=== PATIENT | female | born 1965 | race Caucasian/White ===

== ENCOUNTER 2016-09-09 20:03 | Emergency (ER) | payer MEDICARE ==
[2016-09-09] MEDS ORDERED: HYDROCODONE/APAP 5/325MG TABLET PO ONE (21:52)
--- NOTE | 2016-09-09 21:59 | Emergency Department Record ---
History of Present Illness - General Chief Complaint: Fall Injury Stated Complaint: FALL Time Seen by Provider: 09/09/16 20:23 Source: Patient Mode of Arrival: Ambulatory Limitations: No limitations - History of Present Illness Initial Comments: pt stepped in a hole injuring her l ankle and foot and hip and r hand. pt sat and rested and when she tried to get up it was much worse. pt called her dr and her dr said to come get xrays of these areas. MD Complaint: Fall Onset/Timin -: Hour(s) Fall From: Standing When Fall Occurred: 4-6 hours MAP MOUNTER Fall Witnessed: No Place Fall Occurred: Home Loss of Consciousness: None Prolonged Down Time?: No Symptoms Prior to Fall: None Location - Extremities: Left: Thigh, Ankle, Foot, Right: Hand Severity: Moderate Severity scale (1-10): 6 Quality: Aching Context: Tripped/slipped Associated Symptoms: Denies - [place] Coma Scale Eye Response: (4) Open spontaneously Motor Response: (6) Obeys commands Verbal Response: (5) Oriented [place] Total: 15 - Related Data Home Medications Medication Instructions Recorded Confirmed Last Taken Buspirone HCl [Buspar] 30 mg PO DAILY 06/22/15 09/09/16 09/08/16 Cyclobenzaprine HCl [Flexeril] 10 mg PO TID 06/22/15 09/09/16 09/09/16 Duloxetine HCl [Cymbalta] 120 mg PO DAILY 06/22/15 09/09/16 09/08/16 Guaifenesin 400 mg PO BID 06/22/15 09/09/16 Unknown Lamotrigine [Lamictal] 75 mg PO DAILY 06/22/15 09/09/16 09/09/16 Levothyroxine Sodium [Synthroid] 100 mcg PO DAILY 06/22/15 09/09/16 09/09/16 Lidocaine Patch [Lidoderm] 1 ea TOP DAILY PRN 06/22/15 09/09/16 09/09/16 Magnesium 400 mg PO DAILY 06/22/15 09/09/16 09/09/16 Montelukast Sodium [Singulair] 10 mg PO QHS 06/22/15 09/09/16 09/08/16 Multivitamin [Multi-Vitamin Daily] 1 each PO DAILY 06/22/15 10/20/15 09/09/16 Nystatin 500,000 unit TOP BID 06/22/15 09/09/16 09/09/16 Omeprazole 20 mg PO BID 06/22/15 09/09/16 09/09/16 Tramadol HCl 50 mg PO Q8H 06/22/15 09/09/16 09/09/16 Valacyclovir HCl [Valtrex] 500 mg PO Q12H 06/22/15 09/09/16 Unknown Vitamin B Complex [B-50 Complex] 1 each PO DAILY 06/22/15 09/09/16 09/08/16 Zolpidem Tartrate [Ambien] 10 mg PO QHS 06/22/15 09/09/16 09/08/16 Bupropion HCl [Wellbutrin Sr] 200 mg PO 1-2XD tab 06/10/16 09/09/16 09/09/16 Mometasone/Formoterol [Dulera 200 2 puff IH Q12H puff 06/10/16 09/09/16 Unknown Mcg/5 Mcg Inhaler] Meloxicam [Mobic] 15 mg PO DAILY 09/09/16 09/09/16 09/08/16 Allergies Allergy/AdvReac Type Severity Reaction Status Date / Time itraconazole [From Sporanox] Allergy RASH Verified 10/19/15 00:47 Sulfa (Sulfonamide Allergy HIVES Verified 06/22/15 14:42 Antibiotics) Travel Screening - Travel/Exposure Within Last 30 Days Have you traveled within the last 30 days?: No Review of Systems Reviewed: No additional complaints except as noted below Constitutional: Reports: As per HPI. Denies: Chills, Fever, Malaise, Night sweats, Weakness, Weight change Eyes: Reports: As per HPI. Denies: Eye discharge, Eye pain, Photophobia, Vision change ENT: Reports: As per HPI. Denies: Congestion, Dental pain, Ear pain, Epistaxis , Hearing loss, Throat pain Respiratory: Reports: As per HPI. Denies: Cough, Dyspnea, Hemoptysis, Stridor, Wheezes Cardiovascular: Reports: As per HPI. Denies: Arrhythmia, Chest pain, Dyspnea on exertion, Edema, Murmurs, Orthopnea, Palpitations, Paroxysmal nocturnal dyspnea, Rheumatic Fever, Syncope Endocrine: Reports: As per HPI. Denies: Fatigue, Heat or cold intolerance, Polydipsia, Polyuria Gastrointestinal: Reports: As per HPI. Denies: Abdominal pain, Constipation, Diarrhea, Hematemesis, Hematochezia, Melena, Nausea, Vomiting Genitourinary: Reports: As per HPI. Denies: Abnormal menses, Discharge, Dyspareunia, Dysuria, Frequency, Hematuria, Incontinence, Retention, Urgency Musculoskeletal: Reports: As per HPI. Denies: Arthralgia, Back pain, Gout, Joint swelling, Myalgia, Neck pain Skin: Reports: As per HPI. Denies: Bruising, Change in color, Change in hair/ nails, Lesions, Pruritus, Rash Neurological: Reports: As per HPI. Denies: Abnormal gait, Confusion, Headache, Numbness, Paresthesias, Seizure, Tingling, Tremors, Vertigo, Weakness Psychiatric: Reports: As per HPI. Denies: Anxiety, Auditory hallucinations, Depression, Homicidal thoughts, Suicidal thoughts, Visual hallucinations Hematological/Lymphatic: Reports: As per HPI. Denies: Anemia, Blood Clots, Easy bleeding, Easy bruising, Swollen glands Past Medical History - SOCIAL HISTORY Smoking Status: Former smoker Alcohol Use: Occassional Drug Use: Heavy Drug Use Detail:: Marijuana - RESPIRATORY Hx Respiratory Disorders: Yes Hx Asthma: Yes Hx Pneumonia: Yes (06/2015) - CARDIOVASCULAR Hx Cardio Disorders: No - NEURO Hx Neuro Disorders: Yes Hx Headaches: Yes (constant migraine) Comment:: Shingles x2 - GI Hx GI Disorders: Yes Hx Reflux: Yes Hx Hiatal Hernia: Yes - Hx Genitourinary Disorders: Yes Comment:: having post menopausal vaginal bleeding - ENDOCRINE Hx Endocrine Disorders: Yes Hx Thyroid Disease: Yes (hypo) - MUSCULOSKELETAL Hx Musculoskeletal Disorders: Yes Hx Fibromyalgia: Yes - PSYCH Hx Psych Problems: Yes Hx Depression: Yes - HEMATOLOGY/ONCOLOGY Hx Hematology/Oncology Disorders: Yes Hx Anemia: Yes Family Medical History Any Significant Family History?: Yes Family Hx Comment (NOT TO BE USED IN PLACE OF ITEMS BELOW): Sister w/MS Hx Cancer: Father Hx Diabetes: Father, Brother/Sister Hx Heart Disease: Grandparents Hx HTN: Father, Mother Physical Exam - General General Appearance: Alert, Oriented x3, Cooperative, Mild distress - Head Head exam: Normal inspection - Eye Eye exam: Normal appearance, PERRL, EOMI Pupils: Normal accommodation - ENT ENT exam: Normal exam, Mucous membranes moist, Normal external ear exam, Normal orophraynx Ear exam: Normal external inspection. negative: External canal tenderness Nasal Exam: Normal inspection. negative: Discharge, Sinus tenderness Mouth exam: Normal external inspection, Tongue normal Teeth exam: Normal inspection. negative: Dental caries Throat exam: Normal inspection. negative: Tonsillar erythema, Tonsillar exudate - Neck Neck exam: Normal inspection, Full ROM. negative: Tenderness - Respiratory Respiratory exam: Normal lung sounds bilaterally. negative: Respiratory distress - Cardiovascular Cardiovascular Exam: Regular rate, Normal rhythm, Normal heart sounds - GI/Abdominal GI/Abdominal exam: Soft, Normal bowel sounds. negative: Tenderness - Rectal Rectal exam: Deferred - exam: Deferred - Extremities Extremities exam: Full ROM, Normal capillary refill, Tenderness Image of Full Body: 1 - tender ,contusion 2 - tender 3 - tender - Back Back exam: Reports: Normal inspection, Full ROM. Denies: Muscle spasm, Rash noted, Tenderness - Neurological Neurological exam: Alert, CN II-XII intact, Normal gait, Oriented X3 - Psychiatric Psychiatric exam: Normal affect, Normal mood - Skin Skin exam: Dry, Intact, Normal color, Warm Course Vital Signs 09/09/16 20:11 Temperature 98.5 F Pulse Rate [ 100 H Pulse Ox Probe] Respiratory 16 Rate Blood Pressure 144/88 [Left Arm] Pulse Ox 97 Disposition Disposition: Discharge Clinical Impression: Multiple contusions Ankle sprain Qualifiers: Encounter type: initial encounter Involved ligament of ankle: unspecified ligament Laterality: left Qualified Code(s): S93.402A - Sprain of unspecified ligament of left ankle, initial encounter Disposition: Home, Self-Care Condition: (1) Good Instructions: Hip Contusion (ED), Foot Contusion (ED), Ankle Sprain (ED) Additional Instructions: follow up with family doctor. return sooner if worse. Forms: Patient Portal Access
--- NOTE | 2016-09-13 09:01 | RADIOLOGY REPORT ---
EXAM: RIGHT HAND, THREE VIEWS HISTORY: FALL, RIGHT FIRST METACARPAL INJURY AND PAIN. TECHNIQUE: Three views of the right hand were obtained. Comparison: None. FINDINGS: No bone or joint abnormality. IMPRESSION: NEGATIVE RIGHT HAND EXAMINATION. JOB NUMBER: [id number] MTDD
--- NOTE | 2016-09-13 09:02 | RADIOLOGY REPORT ---
EXAM: LEFT HIP, THREE VIEWS HISTORY: FALL, LEFT HIP INJURY AND PAIN. TECHNIQUE: Three views of the left hip were obtained. Comparison: None. FINDINGS: No bone or joint abnormality. IMPRESSION: NEGATIVE LEFT HIP EXAMINATION. JOB NUMBER: [id number] MTDD
--- NOTE | 2016-09-13 09:05 | RADIOLOGY REPORT ---
EXAM: LEFT ANKLE, THREE VIEWS HISTORY: FALL, LATERAL LEFT ANKLE PAIN. TECHNIQUE: Three views of the left ankle were obtained. Comparison: None. Encounter: Initial. FINDINGS: The left ankle mortise is intact with no acute fracture. Mild enthesophyte formation at the plantar fascial insertion. IMPRESSION: 1. NO ACUTE PROCESS OF THE LEFT ANKLE. 2. MILD LEFT CALCANEAL ENTHESOPATHY. JOB NUMBER: [id number] MTDD
--- NOTE | 2016-09-13 09:07 | RADIOLOGY REPORT ---
EXAM: LEFT FOOT, THREE VIEWS HISTORY: FALL, LATERAL LEFT FOOT INJURY AND PAIN. TECHNIQUE: Three views of the left foot were obtained. Comparison: None. Encounter: Initial. FINDINGS: No acute fracture or dislocation. Mild enthesophyte formation at the plantar fascial insertion. IMPRESSION: NO ACUTE OSSEOUS ABNORMALITY OF THE LEFT FOOT. JOB NUMBER: [id number] MTDD
== END 2016-09-09 22:11 | disposition home or self-care (01) ==
LOC: ER 20:03
DX: S93.402A Sprain of unspecified ligament of left ankle, initial encounter (principal); S60.221A Contusion of right hand, initial encounter; S70.12XA Contusion of left thigh, initial encounter; M25.552 Pain in left hip; W01.0XXA Fall on same level from slipping, tripping and stumbling without subsequent striking against object, initial encounter; Y92.007 Garden or yard of unspecified non-institutional (private) residence as the place of occurrence of the external cause
CPT/HCPCS: 99283; 99284

== ENCOUNTER 2017-05-29 17:00 | Emergency (ER) | payer MEDICARE ==
[2017-05-29] MEDS ORDERED: SODIUM CHLORIDE 0.9% 500 ML IV ONE (17:28)
[2017-05-29] MEDS ORDERED: LORAZEPAM 2 MG/ML VIAL IV ONE ×3 (17:29→21:41)
--- NOTE | 2017-05-29 17:35 | Emergency Department Record ---
History of Present Illness - General Chief Complaint: Crisis Evaluation Stated Complaint: NEEDS CONSULTAION Time Seen by Provider: 05/29/17 17:22 Source: Patient Mode of Arrival: Ambulatory Limitations: No limitations Travel/Exposure to [place] Within 21 Days of Symptoms: No - History of Present Illness Initial Comments: The patient is here due to anxiety. She states she has been having issues with her PCP and had an argument on the phone with the office. They have been cancelling her appointments due to scheduling difficulties and have been very difficult to deal with. Today she asked the office for an acyclovir script due to a chronic problem with genital herpes and the office refused to fill it. Because of that she has become very anxious and angry. She denies any suicidal or homicidal ideation but is just very upset with the office. The patient has a long hx of chronic pain and anxiety and depression and is on multiple medicines for it. MD Complaint: Other -: Unknown Associated Psychiatric Symptoms: None History of same: Yes Quality: Intermittent Improves With: None Worsens With: None Associated Symptoms: Other Treatments Prior to Arrival: None - [place] Coma Scale Eye Response: (4) Open spontaneously Motor Response: (6) Obeys commands Verbal Response: (5) Oriented [place] Total: 15 - Related Data Home Medications Medication Instructions Recorded Confirmed Last Taken Amitriptyline HCl [Amitriptyline 05/29/17 05/29/17 HCl] Cetirizine HCl [Zyrtec] 10 mg PO DAILY 05/29/17 05/29/17 05/29/17 Promethazine HCl [Phenergan] 25 mg PO 05/29/17 05/29/17 Allergies Allergy/AdvReac Type Severity Reaction Status Date / Time gabapentin [From Neurontin] Allergy PT UNSURE Verified 05/29/17 17:30 OF REACTION itraconazole [From Sporanox] Allergy RASH Verified 10/19/15 00:47 Sulfa (Sulfonamide Allergy HIVES Verified 06/22/15 14:42 Antibiotics) Past Medical History - SOCIAL HISTORY Smoking Status: Former smoker Alcohol Use: None Drug Use: None - RESPIRATORY Hx Respiratory Disorders: Yes Hx Asthma: Yes Hx Pneumonia: Yes (06/2015) - CARDIOVASCULAR Hx Cardio Disorders: No - NEURO Hx Neuro Disorders: Yes Hx Headaches: Yes (constant migraine) Comment:: Shingles x2 - GI Hx GI Disorders: Yes Hx Reflux: Yes Hx Hiatal Hernia: Yes - Hx Genitourinary Disorders: Yes Comment:: having post menopausal vaginal bleeding - ENDOCRINE Hx Endocrine Disorders: Yes Hx Thyroid Disease: Yes (hypo) - MUSCULOSKELETAL Hx Musculoskeletal Disorders: Yes Hx Fibromyalgia: Yes - PSYCH Hx Psych Problems: Yes Hx Depression: Yes - HEMATOLOGY/ONCOLOGY Hx Hematology/Oncology Disorders: Yes Hx Anemia: Yes Family Medical History Any Significant Family History?: Yes Family Hx Comment (NOT TO BE USED IN PLACE OF ITEMS BELOW): Sister w/MS Hx Cancer: Father Hx Diabetes: Father, Brother/Sister Hx Heart Disease: Grandparents Hx HTN: Father, Mother Physical Exam - General General Appearance: Alert, Oriented x3, Cooperative, Mild distress (due to anxiety.) - Head Head exam: Atraumatic, Normocephalic - Eye Eye exam: Normal appearance, PERRL, EOMI - ENT Throat exam: Normal inspection. negative: Tonsillar erythema, Tonsillar exudate - Neck Neck exam: Normal inspection, Full ROM. negative: Tenderness - Respiratory Respiratory exam: Normal lung sounds bilaterally. negative: Respiratory distress - Cardiovascular Cardiovascular Exam: Regular rate, Normal rhythm, Normal heart sounds - GI/Abdominal GI/Abdominal exam: Soft, Normal bowel sounds. negative: Tenderness - Extremities Extremities exam: Normal inspection, Full ROM, Normal capillary refill. negative: Tenderness - Neurological Neurological exam: Alert, Normal gait, Oriented X3. negative: Abnormal gait, Motor sensory deficit - Psychiatric Psychiatric exam: Anxious Course Vital Signs 05/29/17 17:08 Temperature 99.3 F Pulse Rate 111 H Respiratory 20 Rate Blood Pressure 191/84 Pulse Ox 97 - Reevaluation(s) Reevaluation #1: The patient is doing better at this time. She feels less anxious and is more calm and comfortable. 05/29/17 17:55 Reevaluation #2: The patient is now more calm but now is stating she DOES feel suicidal. She feels that the events of tonight have tipped her over the edge and she is feeling if she leaves she may slit her wrists trying to kill herself. I explained to her that due to her feeling that way we will be obligated to Francisca and Cert her. The patient understands and is still stating she is suicidal. 05/29/17 18:26 05/29/17 18:38 Reevaluation #3: The patient's care will be turned over to Dr. Wang at 19:00 due to shift change. 05/29/17 18:46 Medical Decision Making - Data Complexity MDM Data: Labs Ordered and/or Reviewed, EKG Ordered and/or Reviewed - Lab Data Result diagrams: 05/29/17 17:41 05/29/17 17:41 - EKG Data -: EKG Interpreted by Me EKG: No Acute Changes, Normal EKG Disposition Forms: Patient Portal Access Quality - Quality Measures Quality Measures: N/A - Blood Pressure Screening View Details: Yes Does Patient Have Any of the Following: No Blood Pressure Classification: Pre-Hypertensive BP Reading Systolic Measurement: 191 Diastolic Measurement: 84 Screening for High Blood Pressure: < Pre-Hypertensive BP, F/U Documented > [ G8950] Pre-Hypertensive Follow-up Interventions: Referral to alternative/primary care provider.
[2017-05-29 17:53] LABS: HEMATOCRIT 47.7 % (35.0-47.0); HEMOGLOBIN 15.9 gm/dl (11.6-16.0); MEAN CELL VOLUME 91.4 fl (81-97); MEAN CORPUSCULAR HEMOGLOBIN 30.5 pg (27-33); MEAN CORPUSCULAR HGB CONC 33.3 g/dl (32-36); MEAN PLATELET VOLUME 9.6 fl (7.4-10.4); PLATELET COUNT 400 K/uL (130-400); RED BLOOD COUNT 5.22 M/uL (3.80-5.40); RED CELL DISTRIBUTION WIDTH 13.5 % (11.5-14.5); WHITE BLOOD COUNT W/O DIFF 12.1 K/uL (4.2-12.2)
[2017-05-29 18:08] LABS: ACETAMINOPHEN < 5.0 ug/mL (10.0-30.0); PLATELET ESTIMATE NORMAL (NORMAL); SALICYLATE < 0.3 mg/dL (2.8-20)
[2017-05-29 18:17] LABS: BLOOD UREA NITROGEN 16 mg/dL (6-20); GLUCOSE,RANDOM 93 mg/dL (74-109)
[2017-05-29 18:18] LABS: ALB/GLOB RATIO 1.8 (1.1-1.8); ALBUMIN 4.6 g/dL (4.0-5.0); AST/SGOT 19 U/L (10.0-35.0); CREATININE 0.8 mg/dL (0.5-0.9); EST GLOMERULAR FILTRATION RATE > 60 mL/min; TOTAL PROTEIN 7.2 g/dL (6.6-8.7)
[2017-05-29 18:19] LABS: ALKALINE PHOSPHATASE 96 U/L (35-104); ALT/SGPT 33 U/L (<33)
[2017-05-29 19:36] LABS: URINE APPEARANCE CLEAR; URINE BILIRUBIN NEGATIVE (NEGATIVE); URINE BLOOD NEGATIVE (NEGATIVE); URINE COLOR YELLOW; URINE GLUCOSE (UA) NEGATIVE (NEGATIVE); URINE KETONE NEGATIVE (NEGATIVE); URINE LEUKOCYTE ESTERASE NEGATIVE (NEGATIVE); URINE NITRITE NEGATIVE (NEGATIVE); URINE PROTEIN NEGATIVE (NEGATIVE); URINE UROBILINOGEN 0.2 E.U./dL (0.20 - 1.00)
[2017-05-29 19:40] LABS: AMPHETAMINE SCREEN URINE NOT DETECTED; BARBITURATE SCREEN URINE NOT DETECTED; BENZODIAZEPINE SCREEN URINE NOT DETECTED; COCAINE SCREEN URINE NOT DETECTED; METHADONE SCREEN URINE NOT DETECTED; METHAMPHETAMINE SCREEN NOT DETECTED; OPIATE SCREEN URINE NOT DETECTED; OXYCODONE SCREEN URINE NOT DETECTED; PHENCYCLIDINE SCREEN URINE NOT DETECTED; PROPOXYPHENE SCREEN URINE NOT DETECTED; THC SCREEN URINE NOT DETECTED; TRICYCLIC ANTIDEPRESSANT SCRN NOT DETECTED
[2017-05-30] MEDS ORDERED: ACYCLOVIR 200 MG CAPSULE PO ONE ×2 (00:36→00:37)
--- NOTE | 2017-05-30 00:43 | Emergency Department Record ---
History of Present Illness - General Chief Complaint: Crisis Evaluation Stated Complaint: NEEDS CONSULTAION Time Seen by Provider: 05/29/17 17:22 Source: Patient Mode of Arrival: Ambulatory Travel/Exposure to [facility] Within 21 Days of Symptoms: No - History of Present Illness -: Unknown Associated Psychiatric Symptoms: None History of same: Yes Quality: Intermittent Improves With: None Worsens With: None Associated Symptoms: Other Treatments Prior to Arrival: None - [place] Coma Scale Eye Response: (4) Open spontaneously Motor Response: (6) Obeys commands Verbal Response: (5) Oriented [place] Total: 15 - Related Data Home Medications Medication Instructions Recorded Confirmed Last Taken Amitriptyline HCl [Amitriptyline 05/29/17 05/29/17 HCl] Cetirizine HCl [Zyrtec] 10 mg PO DAILY 05/29/17 05/29/17 05/29/17 Promethazine HCl [Phenergan] 25 mg PO 05/29/17 05/29/17 Allergies Allergy/AdvReac Type Severity Reaction Status Date / Time gabapentin [From Neurontin] Allergy PT UNSURE Verified 05/29/17 17:30 OF REACTION itraconazole [From Sporanox] Allergy RASH Verified 10/19/15 00:47 Sulfa (Sulfonamide Allergy HIVES Verified 06/22/15 14:42 Antibiotics) Past Medical History - SOCIAL HISTORY Smoking Status: Former smoker Alcohol Use: None Drug Use: None - RESPIRATORY Hx Respiratory Disorders: Yes Hx Asthma: Yes Hx Pneumonia: Yes (06/2015) - CARDIOVASCULAR Hx Cardio Disorders: No - NEURO Hx Neuro Disorders: Yes Hx Headaches: Yes (constant migraine) Comment:: Shingles x2 - GI Hx GI Disorders: Yes Hx Reflux: Yes Hx Hiatal Hernia: Yes - Hx Genitourinary Disorders: Yes Comment:: having post menopausal vaginal bleeding - ENDOCRINE Hx Endocrine Disorders: Yes Hx Thyroid Disease: Yes (hypo) - MUSCULOSKELETAL Hx Musculoskeletal Disorders: Yes Hx Fibromyalgia: Yes - PSYCH Hx Psych Problems: Yes Hx Depression: Yes - HEMATOLOGY/ONCOLOGY Hx Hematology/Oncology Disorders: Yes Hx Anemia: Yes Family Medical History Any Significant Family History?: Yes Family Hx Comment (NOT TO BE USED IN PLACE OF ITEMS BELOW): Sister w/MS Hx Cancer: Father Hx Diabetes: Father, Brother/Sister Hx Heart Disease: Grandparents Hx HTN: Father, Mother Physical Exam - General Limitations: No limitations Course Vital Signs 05/29/17 05/29/17 05/29/17 17:08 18:57 21:30 Temperature 99.3 F 98.3 F Pulse Rate 111 H Pulse Rate [ 93 H 91 H Pulse Ox Probe] Respiratory 20 18 24 Rate Blood Pressure 191/84 Blood Pressure 125/91 124/80 [Right Arm] Pulse Ox 97 99 95 Medical Decision Making - Lab Data Result diagrams: 05/29/17 17:41 05/29/17 17:41 Lab Results 05/29/17 05/29/17 05/29/17 Range/Units 17:41 17:41 17:41 WBC 12.1 (4.2-12.2) K/uL RBC 5.22 (3.80-5.40) M/uL Hgb 15.9 (11.6-16.0) gm/dl Hct 47.7 H (35.0-47.0) % MCV 91.4 (81-97) fl MCH 30.5 (27-33) pg MCHC 33.3 (32-36) g/dl RDW 13.5 (11.5-14.5) % Plt Count 400 (130-400) K/uL MPV 9.6 (7.4-10.4) fl Neutrophils % 71.0 (47-80) % Band Neutrophils % 1.0 (0-5) % Eosinophils % Not Reportable Basophils % Not Reportable Lymphocytes 20.0 (16-45) % Monocytes 8.0 (0-9) % Platelet Estimate Normal (NORMAL) RBC Morphology Normal Sodium 137 (136-145) mmol/L Potassium 4.1 (3.4-4.5) mmol/L Chloride 98 (98-107) mmol/L Carbon Dioxide 26.0 (22-29) mmol/L Anion Gap 13.0 (7-16) BUN 16 (6-20) mg/dL Creatinine 0.8 (0.5-0.9) mg/dL Estimated GFR > 60 mL/min Random Glucose 93 (74-109) mg/dL Calcium 9.3 (8.6-10.0) mg/dL Total Bilirubin 0.40 (0.2-1.0) mg/dL AST 19 (10.0-35.0) U/L ALT 33 (<33) U/L Alkaline Phosphatase 96 (35-104) U/L Total Protein 7.2 (6.6-8.7) g/dL Albumin 4.6 (4.0-5.0) g/dL Globulin 2.6 (1.4-4.8) gm/dL Albumin/Globulin Ratio 1.8 (1.1-1.8) TSH (0.270-4.20) uIU/mL Urine Color Urine Appearance Urine pH (5.0-8.0) Ur Specific [place] (1.002-1.030) Urine Protein (NEGATIVE) Urine Glucose (UA) (NEGATIVE) Urine Ketones (NEGATIVE) Urine Blood (NEGATIVE) Urine Nitrite (NEGATIVE) Urine Bilirubin (NEGATIVE) Urine Urobilinogen (0.20 - 1.00) E.U./dL Ur Leukocyte Esterase (NEGATIVE) Salicylates < 0.3 L (2.8-20) mg/dL Urine Opiates Screen Ur Oxycodone Screen Urine Methadone Screen Ur Propoxyphene Screen Acetaminophen < 5.0 L (10.0-30.0) ug/mL Ur Barbituates Screen Ur Tricyclics Screen Ur Phencyclidine Scrn Ur Amphetamine Screen U Methamphetamines Scrn U Benzodiazepines Scrn Urine Cocaine Screen Urine Cannabis Screen Ethyl Alcohol (0-0.010) g/dL 05/29/17 05/29/17 05/29/17 Range/Units 17:45 17:45 19:25 WBC (4.2-12.2) K/uL RBC (3.80-5.40) M/uL Hgb (11.6-16.0) gm/dl Hct (35.0-47.0) % MCV (81-97) fl MCH (27-33) pg MCHC (32-36) g/dl RDW (11.5-14.5) % Plt Count (130-400) K/uL MPV (7.4-10.4) fl Neutrophils % (47-80) % Band Neutrophils % (0-5) % Eosinophils % Basophils % Lymphocytes (16-45) % Monocytes (0-9) % Platelet Estimate (NORMAL) RBC Morphology Sodium (136-145) mmol/L Potassium (3.4-4.5) mmol/L Chloride (98-107) mmol/L Carbon Dioxide (22-29) mmol/L Anion Gap (7-16) BUN (6-20) mg/dL Creatinine (0.5-0.9) mg/dL Estimated GFR mL/min Random Glucose (74-109) mg/dL Calcium (8.6-10.0) mg/dL Total Bilirubin (0.2-1.0) mg/dL AST (10.0-35.0) U/L ALT (<33) U/L Alkaline Phosphatase (35-104) U/L Total Protein (6.6-8.7) g/dL Albumin (4.0-5.0) g/dL Globulin (1.4-4.8) gm/dL Albumin/Globulin Ratio (1.1-1.8) TSH 1.56 (0.270-4.20) uIU/mL Urine Color Yellow Urine Appearance Clear Urine pH 6.5 (5.0-8.0) Ur Specific [place] <= 1.005 (1.002-1.030) Urine Protein Negative (NEGATIVE) Urine Glucose (UA) Negative (NEGATIVE) Urine Ketones Negative (NEGATIVE) Urine Blood Negative (NEGATIVE) Urine Nitrite Negative (NEGATIVE) Urine Bilirubin Negative (NEGATIVE) Urine Urobilinogen 0.2 (0.20 - 1.00) E.U./dL Ur Leukocyte Esterase Negative (NEGATIVE) Salicylates (2.8-20) mg/dL Urine Opiates Screen Ur Oxycodone Screen Urine Methadone Screen Ur Propoxyphene Screen Acetaminophen (10.0-30.0) ug/mL Ur Barbituates Screen Ur Tricyclics Screen Ur Phencyclidine Scrn Ur Amphetamine Screen U Methamphetamines Scrn U Benzodiazepines Scrn Urine Cocaine Screen Urine Cannabis Screen Ethyl Alcohol 0.010 (0-0.010) g/dL 05/29/17 Range/Units 19:25 WBC (4.2-12.2) K/uL RBC (3.80-5.40) M/uL Hgb (11.6-16.0) gm/dl Hct (35.0-47.0) % MCV (81-97) fl MCH (27-33) pg MCHC (32-36) g/dl RDW (11.5-14.5) % Plt Count (130-400) K/uL MPV (7.4-10.4) fl Neutrophils % (47-80) % Band Neutrophils % (0-5) % Eosinophils % Basophils % Lymphocytes (16-45) % Monocytes (0-9) % Platelet Estimate (NORMAL) RBC Morphology Sodium (136-145) mmol/L Potassium (3.4-4.5) mmol/L Chloride (98-107) mmol/L Carbon Dioxide (22-29) mmol/L Anion Gap (7-16) BUN (6-20) mg/dL Creatinine (0.5-0.9) mg/dL Estimated GFR mL/min Random Glucose (74-109) mg/dL Calcium (8.6-10.0) mg/dL Total Bilirubin (0.2-1.0) mg/dL AST (10.0-35.0) U/L ALT (<33) U/L Alkaline Phosphatase (35-104) U/L Total Protein (6.6-8.7) g/dL Albumin (4.0-5.0) g/dL Globulin (1.4-4.8) gm/dL Albumin/Globulin Ratio (1.1-1.8) TSH (0.270-4.20) uIU/mL Urine Color Urine Appearance Urine pH (5.0-8.0) Ur Specific [place] (1.002-1.030) Urine Protein (NEGATIVE) Urine Glucose (UA) (NEGATIVE) Urine Ketones (NEGATIVE) Urine Blood (NEGATIVE) Urine Nitrite (NEGATIVE) Urine Bilirubin (NEGATIVE) Urine Urobilinogen (0.20 - 1.00) E.U./dL Ur Leukocyte Esterase (NEGATIVE) Salicylates (2.8-20) mg/dL Urine Opiates Screen Not detected Ur Oxycodone Screen Not detected Urine Methadone Screen Not detected Ur Propoxyphene Screen Not detected Acetaminophen (10.0-30.0) ug/mL Ur Barbituates Screen Not detected Ur Tricyclics Screen Not detected Ur Phencyclidine Scrn Not detected Ur Amphetamine Screen Not detected U Methamphetamines Scrn Not detected U Benzodiazepines Scrn Not detected Urine Cocaine Screen Not detected Urine Cannabis Screen Not detected Ethyl Alcohol (0-0.010) g/dL Disposition Disposition: Transfer Clinical Impression: Suicidal ideations Disposition: [facility] To: [facility] Reason For Transfer: suicidal ideation Accepting Physician: conchita Time Discussed w/Accepting Physician: 00:43 Condition: (2) Stable Forms: Patient Portal Access Time of Disposition: 00:43 Quality - Quality Measures Quality Measures: N/A - Blood Pressure Screening Does Patient Have Any of the Following: No Blood Pressure Classification: Pre-Hypertensive BP Reading Systolic Measurement: 191 Diastolic Measurement: 84 Screening for High Blood Pressure: < Pre-Hypertensive BP, F/U Documented > [ G8950] Pre-Hypertensive Follow-up Interventions: Referral to alternative/primary care provider.
== END 2017-05-30 01:30 ==
LOC: ER 17:00
DX: R45.851 Suicidal ideations (principal); Z79.899 Other long term (current) drug therapy; Z87.891 Personal history of nicotine dependence
CPT/HCPCS: 99284 ×2; 96376; 96374; 80053; 81003; 84443; 80305; 85027; 93005; 93010; G0480 ×3; J2060; 80320; 80329

== ENCOUNTER 2017-09-29 21:43 | Emergency (ER) | payer MEDICARE ==
[2017-09-29] MEDS ORDERED: ONDANSETRON HCL IV 4 MG/2 ML VIAL IVP ONE (22:03)
--- NOTE | 2017-09-29 22:07 | Emergency Department Record ---
History of Present Illness - General Chief complaint: Heat Cramps/exhaustion/stroke Stated complaint: NAUSEA Time Seen by Provider: 09/29/17 22:03 Source: Patient Mode of Arrival: Ambulatory Limitations: No limitations - History of Present Illness Initial comments: 52 yo female presents to ED for evaluation of possible heat exhaustion. Patient reports that she does not have air conditioning at home, reports that she feels overheated at home and possible dehydrated. Patient reports that she was sitting in cool bath for most of the day, reports headache and nausea symptoms. Patient reports that she is tolerating PO fluids well at home. MD Complaint: Generalized weakness Onset/Timin -: Days(s) Location: Generalized Severity: Moderate Consistency: Constant Improves with: None Worsens with: None Associated Symptoms: Denies other symptoms - Rohini Coma Scale Eye Response: (4) Open spontaneously Motor Response: (6) Obeys commands Verbal Response: (5) Oriented Rohini Total: 15 - Related Data Allergies Allergy/AdvReac Type Severity Reaction Status Date / Time gabapentin [From Neurontin] Allergy PT UNSURE Unverified 09/11/17 15:24 OF REACTION itraconazole [From Sporanox] Allergy RASH Unverified 09/11/17 15:24 Sulfa (Sulfonamide Allergy HIVES Unverified 09/11/17 15:24 Antibiotics) Review of Systems Constitutional: Reports: Malaise, Weakness. Denies: Chills, Fever, Night sweats Eyes: Denies: Eye discharge, Eye pain, Photophobia ENT: Denies: Congestion, Ear pain, Epistaxis Respiratory: Denies: Cough, Dyspnea Cardiovascular: Denies: Chest pain, Dyspnea on exertion Endocrine: Reports: Fatigue. Denies: Heat or cold intolerance Gastrointestinal: Reports: Nausea. Denies: Abdominal pain, Vomiting Genitourinary: Denies: Incontinence, Retention Musculoskeletal: Denies: Arthralgia, Back pain Skin: Denies: Bruising, Change in color Neurological: Reports: Headache. Denies: Abnormal gait, Confusion, Seizure Psychiatric: Denies: Anxiety Hematological/Lymphatic: Denies: Anemia, Blood Clots Past Medical History - SOCIAL HISTORY Smoking Status: Former smoker Drug Use: None - RESPIRATORY Hx Respiratory Disorders: Yes Hx Asthma: Yes Hx Pneumonia: Yes (06/2015) - CARDIOVASCULAR Hx Cardio Disorders: No - NEURO Hx Neuro Disorders: Yes Hx Headaches: Yes (constant migraine) Comment:: Shingles x2 - GI Hx GI Disorders: Yes Hx Reflux: Yes Hx Hiatal Hernia: Yes - Hx Genitourinary Disorders: Yes Comment:: having post menopausal vaginal bleeding - ENDOCRINE Hx Endocrine Disorders: Yes Hx Thyroid Disease: Yes (hypo) - MUSCULOSKELETAL Hx Musculoskeletal Disorders: Yes Hx Fibromyalgia: Yes - PSYCH Hx Psych Problems: Yes Hx Depression: Yes - HEMATOLOGY/ONCOLOGY Hx Hematology/Oncology Disorders: Yes Hx Anemia: Yes Family Medical History Family Hx Comment (NOT TO BE USED IN PLACE OF ITEMS BELOW): Sister w/MS Hx Cancer: Father Hx Diabetes: Father, Brother/Sister Hx Heart Disease: Grandparents Hx HTN: Father, Mother Physical Exam - General General Appearance: Alert, Oriented x3, Cooperative, Mild distress Limitations: No limitations - Head Head exam: Atraumatic, Normocephalic, Normal inspection Head exam detail: negative: Abrasion, Contusion, Hargrove's sign, General tenderness, Hematoma, Laceration - Eye Eye exam: Normal appearance, PERRL. negative: Conjunctival injection, Periorbital swelling, Periorbital tenderness, Scleral icterus - ENT Ear exam: negative: Auricular hematoma, Auricular trauma Nasal Exam: negative: Active bleeding, Discharge, Foreign body Mouth exam: negative: Drooling, Laceration, Muffled voice, Tongue elevation - Neck Neck exam: Normal inspection. negative: Meningismus, Tenderness - Respiratory Respiratory exam: Normal lung sounds bilaterally. negative: Rales, Respiratory distress, Rhonchi, Stridor - Cardiovascular Cardiovascular Exam: Regular rate, Normal rhythm, Normal heart sounds - GI/Abdominal GI/Abdominal exam: Soft. negative: Rebound, Rigid, Tenderness - Rectal Rectal exam: Deferred - exam: Deferred - Extremities Extremities exam: Normal inspection. negative: Calf tenderness, Pedal edema, Tenderness - Back Back exam: Denies: CVA tenderness (R), CVA tenderness (L) - Neurological Neurological exam: Alert, Normal gait, Oriented X3 - Psychiatric Psychiatric exam: Normal affect, Normal mood - Skin Skin exam: Normal color. negative: Abrasion Type of lesion: negative: abrasion Course Vital Signs 09/29/17 09/29/17 21:48 21:49 Temperature 98.1 F Pulse Rate [ 72 Pulse Ox Probe] Respiratory 16 Rate Blood Pressure 161/95 [Left Arm] Pulse Ox 98 - Reevaluation(s) Reevaluation #1: 06/18/18 23:04 Labs reviewed and are grossly unremarkable for an acute process. Reevaluation #2: 09/29/17 23:09 Patient was reassessed, reports that her headache and nausea symptoms are improved, has ambulated to the bathroom with steady gait, and appears stable for discharge at this time. Medical Decision Making - Lab Data Result diagrams: 09/29/17 22:38 09/29/17 22:38 Disposition Disposition: Discharge Clinical Impression: Nausea Headache Qualifiers: Headache type: unspecified Headache chronicity pattern: acute headache Intractability: not intractable Qualified Code(s): R51 - Headache Disposition: Home, Self-Care Condition: (2) Stable Instructions: Acute Headache (ED) Additional Instructions: Return to ED if your symptoms worsen or if you have any concerns. Drink plenty of fluids/rest. Follow-up with your family doctor in 3-5 days as directed. Forms: Patient Portal Access Time of Disposition: 23:11 Quality - Quality Measures Quality Measures: N/A - Blood Pressure Screening Does Patient Have Any of the Following: Active Dx of HTN Blood Pressure Classification: Hypertensive Reading Systolic Measurement: 161 Diastolic Measurement: 95 Screening for High Blood Pressure: Patient Exclusion, Hx of HTN [G9744]
[2017-09-29] MEDS: METOCLOPRAMIDE HCL 10 MG/2 ML VIAL IVP ONE (22:18)
[2017-09-29] MEDS: DIPHENHYDRAMINE HCL 50 MG/ML VIAL IVP ONE (22:22)
[2017-09-29] MEDS: 0.9 % SODIUM CHLORIDE 1000ML 1,000 ML IV SCH (22:23)
[2017-09-29 22:44] LABS: BASO % 1.5 % (0-6); EOS % 4.3 % (0-6); GRAN % 46.1 % (47-80); HEMATOCRIT 44.2 % (35.0-47.0); HEMOGLOBIN 14.4 gm/dl (11.6-16.0); MEAN CELL VOLUME 92.9 fl (81-97); MEAN CORPUSCULAR HEMOGLOBIN 30.3 pg (27-33); MEAN CORPUSCULAR HGB CONC 32.6 g/dl (32-36); MEAN PLATELET VOLUME 9.5 fl (7.4-10.4); MONO % 14.1 % (0-9); PLATELET COUNT 289 K/uL (130-400); RED BLOOD COUNT 4.76 M/uL (3.80-5.40); WHITE BLOOD COUNT W/O DIFF 6.6 K/uL (4.2-12.2)
[2017-09-29 22:57] LABS: BLOOD UREA NITROGEN 12 mg/dL (6-20); CREATININE 0.8 mg/dL (0.5-0.9); EST GLOMERULAR FILTRATION RATE > 60 mL/min
[2017-09-29 22:58] LABS: TOTAL PROTEIN 6.2 g/dL (6.6-8.7)
[2017-09-29 23:00] LABS: GLUCOSE,RANDOM 89 mg/dL (74-109)
[2017-09-29 23:03] LABS: ALB/GLOB RATIO 2.3 (1.1-1.8); ALBUMIN 4.3 g/dL (4.0-5.0); ALKALINE PHOSPHATASE 75 U/L (35-104); ALT/SGPT 27 U/L (<33); AST/SGOT 18 U/L (10.0-35.0)
== END 2017-09-29 23:17 | disposition home or self-care (01) ==
LOC: ER 21:43
DX: R51 Headache (principal); M79.7 Fibromyalgia
CPT/HCPCS: 80053; 85025; 96360; 99284; J1200; J2765; J7030

== ENCOUNTER 2018-03-04 10:54 | Emergency (ER) | payer MEDICARE ==
--- NOTE | 2018-03-04 11:51 | Emergency Department Record ---
History of Present Illness - General Chief Complaint: Back Pain/Injury Stated Complaint: BACK PAIN Time Seen by Provider: 03/04/18 11:38 Source: Patient, RN notes reviewed - History of Present Illness Initial Comments: low back pain for 8 days and radiation into the left leg down to the foot back and side of leg. [facility] and [facility] prednisone at [facility] and she called her primary Dr. Jenny Ross and told she can increase her ultram to 6 pills in 24 hours. Baclofen 10 mg BID, prednisone 20 mg bid for 7 days and she was given a shot too at [facility]. Patient has chronic back pain and gets OMT once a month. Patient said the back pain is better but still hurts. MD Complaint: Back pain Onset/Timin -: Days(s) Similar Symptoms Previously: Yes Place: Home Radiation: None Severity scale (1-10): 8 Quality: Sharp, Stabbing Consistency: Intermittent Improves With: Immobilization Worsens With: Movement Context: Unknown Associated Symptoms: Denies other symptoms Treatments Prior to Arrival: Acetaminophen Treatment Prior to Arrival Comment:: Took at 1030 this AM - Related Data Allergies Allergy/AdvReac Type Severity Reaction Status Date / Time gabapentin [From Neurontin] Allergy PT UNSURE Verified 03/04/18 11:20 OF REACTION itraconazole [From Sporanox] Allergy RASH Verified 03/04/18 11:20 Sulfa (Sulfonamide Allergy HIVES Verified 03/04/18 11:20 Antibiotics) Travel Screening - Travel/Exposure Within Last 30 Days Have you traveled within the last 30 days?: No - Travel/Exposure Within Last Year Have you traveled outside the [place] in the last year?: No - Additonal Travel Details Have you been exposed to anyone with a communicable illness?: No - Travel Symptoms Symptom Screening: None Review of Systems Reviewed: No additional complaints except as noted below Constitutional: Reports: As per HPI. Denies: Chills, Fever, Malaise, Night sweats, Weakness, Weight change Eyes: Reports: As per HPI. Denies: Eye discharge, Eye pain, Photophobia, Vision change ENT: Reports: As per HPI. Denies: Congestion, Dental pain, Ear pain, Epistaxis , Hearing loss, Throat pain Respiratory: Reports: As per HPI. Denies: Cough, Dyspnea, Hemoptysis, Stridor, Wheezes Cardiovascular: Reports: As per HPI. Denies: Arrhythmia, Chest pain, Dyspnea on exertion, Edema, Murmurs, Orthopnea, Palpitations, Paroxysmal nocturnal dyspnea, Rheumatic Fever, Syncope Endocrine: Reports: As per HPI. Denies: Fatigue, Heat or cold intolerance, Polydipsia, Polyuria Gastrointestinal: Reports: As per HPI. Denies: Abdominal pain, Constipation, Diarrhea, Hematemesis, Hematochezia, Melena, Nausea, Vomiting Genitourinary: Reports: As per HPI. Denies: Abnormal menses, Discharge, Dyspareunia, Dysuria, Frequency, Hematuria, Incontinence, Retention, Urgency Musculoskeletal: Reports: As per HPI, Back pain. Denies: Arthralgia, Gout, Joint swelling, Myalgia, Neck pain Skin: Reports: As per HPI. Denies: Bruising, Change in color, Change in hair/ nails, Lesions, Pruritus, Rash Neurological: Reports: As per HPI. Denies: Abnormal gait, Confusion, Headache, Numbness, Paresthesias, Seizure, Tingling, Tremors, Vertigo, Weakness Psychiatric: Reports: As per HPI. Denies: Anxiety, Auditory hallucinations, Depression, Homicidal thoughts, Suicidal thoughts, Visual hallucinations Hematological/Lymphatic: Reports: As per HPI. Denies: Anemia, Blood Clots, Easy bleeding, Easy bruising, Swollen glands Past Medical History - SOCIAL HISTORY Smoking Status: Former smoker Alcohol Use: Occasional Drug Use: Heavy Drug Use Detail:: Marijuana - RESPIRATORY Hx Respiratory Disorders: Yes Hx Asthma: Yes Hx Pneumonia: Yes (06/2015) - CARDIOVASCULAR Hx Cardio Disorders: No - NEURO Hx Neuro Disorders: Yes Hx Headaches: Yes (constant migraine) Comment:: Shingles x2 - GI Hx GI Disorders: Yes Hx Reflux: Yes Hx Hiatal Hernia: Yes - Hx Genitourinary Disorders: Yes Comment:: having post menopausal vaginal bleeding - ENDOCRINE Hx Endocrine Disorders: Yes Hx Thyroid Disease: Yes (hypo) - MUSCULOSKELETAL Hx Musculoskeletal Disorders: Yes Hx Fibromyalgia: Yes - PSYCH Hx Psych Problems: Yes Hx Depression: Yes Comment:: PTSD - HEMATOLOGY/ONCOLOGY Hx Hematology/Oncology Disorders: Yes Hx Anemia: Yes Family Medical History Any Significant Family History?: Yes Family Hx Comment (NOT TO BE USED IN PLACE OF ITEMS BELOW): Sister w/MS Hx Cancer: Father Hx Diabetes: Father, Brother/Sister Hx Heart Disease: Grandparents Hx HTN: Father, Mother Physical Exam - General General Appearance: Alert, Oriented x3, Cooperative, No acute distress - Head Head exam: Normal inspection - Eye Eye exam: Normal appearance, PERRL Pupils: Normal accommodation - ENT ENT exam: Normal exam, Mucous membranes moist, Normal external ear exam, Normal orophraynx, TM's normal bilaterally Ear exam: Normal external inspection. negative: External canal tenderness Nasal Exam: Normal inspection. negative: Discharge, Sinus tenderness Mouth exam: Normal external inspection, Tongue normal Teeth exam: Normal inspection. negative: Dental caries Throat exam: Normal inspection. negative: Tonsillar erythema, Tonsillar exudate - Neck Neck exam: Normal inspection, Full ROM. negative: Tenderness - Respiratory Respiratory exam: Normal lung sounds bilaterally. negative: Respiratory distress - Cardiovascular Cardiovascular Exam: Regular rate, Normal rhythm, Normal heart sounds - GI/Abdominal GI/Abdominal exam: Soft, Normal bowel sounds. negative: Tenderness - Rectal Rectal exam: Deferred - exam: Deferred - Extremities Extremities exam: Normal inspection, Full ROM, Normal capillary refill. negative: Tenderness - Back Back exam: Reports: Normal inspection, Full ROM. Denies: Muscle spasm, Rash noted, Tenderness - Neurological Neurological exam: Alert, Normal gait, Oriented X3, Reflexes normal - Psychiatric Psychiatric exam: Normal affect, Normal mood - Skin Skin exam: Dry, Intact, Normal color, Warm Course Vital Signs 03/04/18 11:24 Temperature 97.5 F L Pulse Rate 73 Respiratory 20 Rate Blood Pressure 142/87 Pulse Ox 97 Disposition Clinical Impression: Lumbar strain Qualifiers: Encounter type: initial encounter Qualified Code(s): S39.012A - Strain of muscle, fascia and tendon of lower back, initial encounter Disposition: Home, Self-Care Condition: (1) Good Instructions: Low Back Strain (ED) Additional Instructions: follow up with family in 5-7 days and continue prednisone till gone and use baclofen and tramadol as prescribed do leg exercises as demonstrated in ED Forms: Patient Portal Access Time of Disposition: 12:00 Quality - Quality Measures Quality Measures: N/A - Blood Pressure Screening Does Patient Have Any of the Following: No Blood Pressure Classification: Pre-Hypertensive BP Reading Systolic Measurement: 142 Diastolic Measurement: 87 Screening for High Blood Pressure: < Pre-Hypertensive BP, F/U Documented > [ G8950] Pre-Hypertensive Follow-up Interventions: Referral to alternative/primary care provider.
[2018-03-04] MEDS ORDERED: ORPHENADRINE CITRATE 60MG/2ML VIAL IM ONE (11:53)
[2018-03-04] MEDS ORDERED: KETOROLAC 60 MG/2 ML VIAL IM STA (11:53)
== END 2018-03-04 12:21 | disposition home or self-care (01) ==
LOC: ER 10:54
DX: S39.012A Strain of muscle, fascia and tendon of lower back, initial encounter (principal); X50.9XXA Other and unspecified overexertion or strenuous movements or postures, initial encounter; Y92.009 Unspecified place in unspecified non-institutional (private) residence as the place of occurrence of the external cause
CPT/HCPCS: 96372; 99283; J1885; J2360

== ENCOUNTER 2018-03-18 18:09 | Emergency (ER) | payer MEDICARE, SELFPAY ==
[2018-03-18] MEDS ORDERED: ORPHENADRINE CITRATE 60MG/2ML VIAL IM ONE (18:29)
--- NOTE | 2018-03-18 18:37 | Emergency Department Record ---
History of Present Illness - General Chief Complaint: Back Pain/Injury Stated Complaint: lt leg /hip pain Time Seen by Provider: 03/18/18 18:13 Source: Patient Mode of Arrival: Ambulatory Limitations: No limitations - History of Present Illness Initial Comments: 52 yo female presents to ED for evaluation of a "flare-up" of her sciatica to the left hip. Patient reports that her pain symptoms have been present for 3 weeks, reports that she takes Tramadol and Baclofen for her chronic sciatica since 2002. Patient reports that her home medications have not been helping over the past several weeks. Patient denies numbness over the groin region, tingling, or lower extremity weakness symptoms to the lower extremities. Patient has not been able to see her PCP due to co-pay costs. Patient reports "I received a pain shot and a muscle relaxer 3 weeks ago in the ED that helped". Complaint: Back pain Onset/Timin -: Days(s) Similar Symptoms Previously: Yes Place: Home Radiation: Left leg Severity: Moderate Improves With: None Worsens With: None Context: Unknown Associated Symptoms: Denies other symptoms Treatments Prior to Arrival: Prescription analgesics - Related Data Allergies Allergy/AdvReac Type Severity Reaction Status Date / Time gabapentin [From Neurontin] Allergy PT UNSURE Verified 03/18/18 18:23 OF REACTION itraconazole [From Sporanox] Allergy RASH Verified 03/18/18 18:23 Sulfa (Sulfonamide Allergy HIVES Verified 03/18/18 18:23 Antibiotics) Travel Screening - Travel/Exposure Within Last 30 Days Have you traveled within the last 30 days?: No - Travel/Exposure Within Last Year Have you traveled outside the [place] in the last year?: No - Additonal Travel Details Have you been exposed to anyone with a communicable illness?: No - Travel Symptoms Symptom Screening: None Review of Systems Constitutional: Denies: Chills, Fever, Malaise, Night sweats Eyes: Denies: Eye discharge, Eye pain ENT: Denies: Congestion, Ear pain, Epistaxis Respiratory: Denies: Cough, Dyspnea Cardiovascular: Denies: Chest pain, Dyspnea on exertion Endocrine: Denies: Fatigue, Heat or cold intolerance Gastrointestinal: Denies: Abdominal pain, Nausea, Vomiting Genitourinary: Denies: Incontinence, Retention Musculoskeletal: Reports: Back pain Skin: Denies: Bruising, Change in color Neurological: Denies: Abnormal gait, Confusion, Headache, Numbness, Tingling, Weakness Psychiatric: Denies: Anxiety Hematological/Lymphatic: Denies: Anemia, Blood Clots Past Medical History - SOCIAL HISTORY Smoking Status: Former smoker Alcohol Use: None Drug Use: None - RESPIRATORY Hx Respiratory Disorders: Yes Hx Asthma: Yes Hx Pneumonia: Yes (06/2015) - CARDIOVASCULAR Hx Cardio Disorders: No - NEURO Hx Neuro Disorders: Yes Hx Headaches: Yes (constant migraine) Comment:: Shingles x2 - GI Hx GI Disorders: Yes Hx Reflux: Yes Hx Hiatal Hernia: Yes - Hx Genitourinary Disorders: Yes Comment:: having post menopausal vaginal bleeding - ENDOCRINE Hx Endocrine Disorders: Yes Hx Thyroid Disease: Yes (hypo) - MUSCULOSKELETAL Hx Musculoskeletal Disorders: Yes Hx Fibromyalgia: Yes - PSYCH Hx Psych Problems: Yes Hx Depression: Yes Comment:: PTSD - HEMATOLOGY/ONCOLOGY Hx Hematology/Oncology Disorders: Yes Hx Anemia: Yes Family Medical History Any Significant Family History?: Yes Family Hx Comment (NOT TO BE USED IN PLACE OF ITEMS BELOW): Sister w/MS Hx Cancer: Father Hx Diabetes: Father, Brother/Sister Hx Heart Disease: Grandparents Hx HTN: Father, Mother Physical Exam - General General Appearance: Alert, Oriented x3, Cooperative, No acute distress, Other ( Smiling, conversational, appears that her pain is well controlled on examination.) Limitations: No limitations - Head Head exam: Atraumatic, Normocephalic, Normal inspection Head exam detail: negative: Abrasion, Contusion, Hargrove's sign, General tenderness, Hematoma, Laceration - Eye Eye exam: Normal appearance. negative: Conjunctival injection, Periorbital swelling, Periorbital tenderness, Scleral icterus - ENT Ear exam: negative: Auricular hematoma, Auricular trauma Nasal Exam: negative: Active bleeding, Discharge, Dried blood, Foreign body Mouth exam: negative: Drooling, Laceration, Muffled voice, Tongue elevation - Neck Neck exam: negative: Normal inspection, Meningismus, Tenderness - Respiratory Respiratory exam: Normal lung sounds bilaterally. negative: Respiratory distress, Rhonchi, Stridor, Wheezes - Cardiovascular Cardiovascular Exam: Regular rate, Normal rhythm, Normal heart sounds - GI/Abdominal GI/Abdominal exam: Soft. negative: Rebound, Rigid, Tenderness - Rectal Rectal exam: Deferred - exam: Deferred - Extremities Extremities exam: Normal inspection. negative: Calf tenderness, Pedal edema, Tenderness - Back Back exam: Denies: CVA tenderness (R), CVA tenderness (L) - Neurological Neurological exam: Alert, Oriented X3, Other (EHL and plantar-flexion/ dorsiflexion are 5/5 and symmetric bilaterally.). negative: Motor sensory deficit - Psychiatric Psychiatric exam: Normal affect, Normal mood - Skin Skin exam: Normal color. negative: Abrasion Type of lesion: negative: abrasion Course Vital Signs 03/18/18 18:24 Temperature 97.8 F Pulse Rate 74 Respiratory 20 Rate Blood Pressure 162/88 Pulse Ox 97 - Reevaluation(s) Reevaluation #1: 03/18/18 18:53 Patient was reassessed, reports that her pain symptoms are improved following Norflex injection. Patient appears stable for discharge. Patient was counseled to follow-up with her PCP in 1-3 days for further pain management recommendations. Disposition Disposition: Discharge Clinical Impression: Chronic sciatica Qualifiers: Laterality: left Qualified Code(s): M54.32 - Sciatica, left side Disposition: Home, Self-Care Condition: (2) Stable Instructions: Sciatica (ED) Additional Instructions: Return to ED if your symptoms worsen or if you have any concerns. Follow-up with Dr. Quintanilla in 1-3 days as directed for further evaluation of your chronic back pain symptoms. Forms: Patient Portal Access Time of Disposition: 18:37 Quality - Quality Measures Quality Measures: N/A - Blood Pressure Screening Does Patient Have Any of the Following: No Blood Pressure Classification: Pre-Hypertensive BP Reading Systolic Measurement: 162 Diastolic Measurement: 88 Screening for High Blood Pressure: < Pre-Hypertensive BP, F/U Documented > [ G8950] Pre-Hypertensive Follow-up Interventions: Referral to alternative/primary care provider.
== END 2018-03-18 18:58 | disposition home or self-care (01) ==
LOC: ER 18:09
DX: M54.32 Sciatica, left side (principal); Z87.891 Personal history of nicotine dependence
CPT/HCPCS: 96372; 99283; J2360

== ENCOUNTER 2018-06-14 18:01 | Emergency (ER) | payer MEDICARE, MEDICAID, SELFPAY ==
[2018-06-14] MEDS ORDERED: ACETAMINOPHEN 325 MG TAB PO ONE (18:12)
--- NOTE | 2018-06-14 18:16 | Emergency Department Record ---
History of Present Illness - General Chief Complaint: Ankle/Foot Injury Stated Complaint: FALL/LT ANKLE PAIN Time Seen by Provider: 06/14/18 18:12 Source: Patient Mode of Arrival: Wheelchair Limitations: No limitations - History of Present Illness Initial Comments: 53 yo female presents to ED for evaluation of left ankle pain following an inversion injury just prior to arrival. Patient reports that she was working outdoors when stepped on a loose patio stone, results hearing a "pop" and feeling pain to the lateral ankle. Patient reports pain with attempted weight bearing, denies other injury on examination. MD Complaint: Ankle injury Onset/Timin -: Minutes(s) Injury: Ankle: Left Type of Injury: Inversion Place: Home Severity: Moderate Improves With: Nothing Worsens With: Weight bearing - Related Data Home Medications Medication Instructions Recorded Confirmed Last Taken Lisinopril [Zestril] 5 mg PO DAILY 06/14/18 06/14/18 06/14/18 Allergies Allergy/AdvReac Type Severity Reaction Status Date / Time gabapentin [From Neurontin] Allergy PT UNSURE Verified 06/14/18 18:05 OF REACTION itraconazole [From Sporanox] Allergy RASH Verified 06/14/18 18:05 Sulfa (Sulfonamide Allergy HIVES Verified 06/14/18 18:05 Antibiotics) Review of Systems Constitutional: Denies: Chills, Fever, Malaise, Night sweats Eyes: Denies: Eye discharge, Eye pain ENT: Denies: Congestion, Ear pain, Epistaxis Respiratory: Denies: Cough, Dyspnea Cardiovascular: Denies: Chest pain, Dyspnea on exertion Endocrine: Denies: Fatigue, Heat or cold intolerance Gastrointestinal: Denies: Abdominal pain, Nausea, Vomiting Genitourinary: Denies: Incontinence, Retention Musculoskeletal: Reports: Arthralgia. Denies: Back pain, Gout, Joint swelling Skin: Denies: Bruising, Change in color Neurological: Denies: Abnormal gait, Confusion, Headache, Seizure Psychiatric: Denies: Anxiety Hematological/Lymphatic: Denies: Anemia, Blood Clots Past Medical History - SOCIAL HISTORY Smoking Status: Former smoker Drug Use: None - RESPIRATORY Hx Respiratory Disorders: Yes Hx Asthma: Yes Hx Pneumonia: Yes (06/2015) - CARDIOVASCULAR Hx Cardio Disorders: No - NEURO Hx Neuro Disorders: Yes Hx Headaches: Yes (constant migraine) Comment:: Shingles x2 - GI Hx GI Disorders: Yes Hx Reflux: Yes Hx Hiatal Hernia: Yes - Hx Genitourinary Disorders: Yes Comment:: having post menopausal vaginal bleeding - ENDOCRINE Hx Endocrine Disorders: Yes Hx Thyroid Disease: Yes (hypo) - MUSCULOSKELETAL Hx Musculoskeletal Disorders: Yes Hx Fibromyalgia: Yes - PSYCH Hx Psych Problems: Yes Hx Depression: Yes Comment:: PTSD - HEMATOLOGY/ONCOLOGY Hx Hematology/Oncology Disorders: Yes Hx Anemia: Yes Family Medical History Family Hx Comment (NOT TO BE USED IN PLACE OF ITEMS BELOW): Sister w/MS Hx Cancer: Father Hx Diabetes: Father, Brother/Sister Hx Heart Disease: Grandparents Hx HTN: Father, Mother Physical Exam - General General Appearance: Alert, Oriented x3, Cooperative, Moderate distress Limitations: No limitations - Head Head exam: Atraumatic, Normocephalic, Normal inspection Head exam detail: negative: Abrasion, Contusion, Hargrove's sign, General tenderness, Hematoma, Laceration - Eye Eye exam: Normal appearance. negative: Conjunctival injection, Periorbital swelling, Periorbital tenderness, Scleral icterus - ENT Ear exam: negative: Auricular hematoma, Auricular trauma Nasal Exam: negative: Active bleeding, Discharge, Dried blood, Foreign body Mouth exam: negative: Drooling, Laceration, Muffled voice, Tongue elevation - Neck Neck exam: Normal inspection. negative: Meningismus, Tenderness - Respiratory Respiratory exam: Normal lung sounds bilaterally. negative: Rales, Respiratory distress, Rhonchi, Stridor - Cardiovascular Cardiovascular Exam: Regular rate, Normal rhythm, Normal heart sounds Peripheral Pulses: 3+: Dorsalis Pedis (L) - GI/Abdominal GI/Abdominal exam: Soft. negative: Rebound, Rigid, Tenderness - Rectal Rectal exam: Deferred - exam: Deferred - Extremities Extremities exam: Tenderness (TTP along the lateral left lateral ankle, achilles intact, no pain over the foot, FROM of the foot, no pain with examination of the lower leg and compartments of the lower leg are soft on examination.). negative: Calf tenderness, Pedal edema - Back Back exam: Denies: CVA tenderness (R), CVA tenderness (L) - Neurological Neurological exam: Alert, Oriented X3 - Psychiatric Psychiatric exam: Normal affect, Normal mood - Skin Skin exam: Normal color. negative: Abrasion Type of lesion: negative: abrasion Course - Reevaluation(s) Reevaluation #1: 06/14/18 18:30 Left ankle: ? avulsion from the medial mallelous Patient was updated on all results, does not report pain to the medial aspect of the ankle. Will place in fracture boot (patient has crutches), and patient appears stable for discharge at this time. Disposition Disposition: Discharge Clinical Impression: Ankle sprain Qualifiers: Encounter type: initial encounter Involved ligament of ankle: anterior talofibular ligament Laterality: left Qualified Code(s): S93.492A - Sprain of other ligament of left ankle, initial encounter Avulsion fracture of ankle Qualifiers: Encounter type: initial encounter Fracture type: closed Laterality: left Qualified Code(s): S82.892A - Other fracture of left lower leg, initial encounter for closed fracture Disposition: Home, Self-Care Condition: (2) Stable Instructions: Ankle Sprain (ED), Ankle Sprain Exercises (GEN) Additional Instructions: Return to ED if your symptoms worsen or if you have any concerns. Tylenol, ice as directed. Follow-up with your family doctor in 3-5 days as directed. Forms: Patient Portal Access Time of Disposition: 18:47 Quality - Quality Measures Quality Measures: N/A - Blood Pressure Screening Does Patient Have Any of the Following: No Blood Pressure Classification: Pre-Hypertensive BP Reading Systolic Measurement: 141 Diastolic Measurement: 80 Screening for High Blood Pressure: < Pre-Hypertensive BP, F/U Documented > [ G8950] Pre-Hypertensive Follow-up Interventions: Referral to alternative/primary care provider.
--- NOTE | 2018-06-16 08:36 | RADIOLOGY REPORT ---
EXAM: LEFT ANKLE, THREE VIEWS HISTORY: PAIN AND SWELLING POST TWISTING INJURY. PAIN MOST PRONOUNCED LATERALLY. TECHNIQUE: Three views of the left ankle were obtained. Comparison: Three views of the left ankle dated 09/09/16. Encounter: Initial. FINDINGS: There is a linear lucency near the tip of the medial malleolus which was not present on the prior examination. Age indeterminate fracture cannot be excluded. No other osseous evidence of fracture nor is there dislocation. The ankle mortise joint is symmetric. There is mild anterolateral soft tissue swelling. A small to moderate sized plantar calcaneal spur is redemonstrated, stable. IMPRESSION: 1. LINEAR LUCENCY NOW NOTED NEAR THE TIP OF THE MEDIAL MALLEOLUS, NOT PREVIOUSLY DEMONSTRATED WITH AGE INDETERMINATE FRACTURE CONSIDERED. NO OTHER OSSEOUS EVIDENCE OF FRACTURE NOR DISLOCATION. 2. MILD LATERAL SOFT TISSUE SWELLING. 3. CALCANEAL SPUR. JOB NUMBER: [id number] MTDD
== END 2018-06-14 18:53 | disposition home or self-care (01) ==
LOC: ER 18:01
DX: S82.52XA Displaced fracture of medial malleolus of left tibia, initial encounter for closed fracture (principal); S93.492A Sprain of other ligament of left ankle, initial encounter; X50.0XXA Overexertion from strenuous movement or load, initial encounter; Y92.007 Garden or yard of unspecified non-institutional (private) residence as the place of occurrence of the external cause; Z87.891 Personal history of nicotine dependence
CPT/HCPCS: 99283

== ENCOUNTER 2019-01-12 18:39 | Emergency (ER) | payer MEDICARE, SELFPAY ==
--- NOTE | 2019-01-12 18:49 | Emergency Department Record ---
History of Present Illness - General Chief complaint: Flu Like Symptoms Stated complaint: BODY ACHES,CHILLS Time Seen by Provider: 01/12/19 18:43 Source: Patient Mode of Arrival: Ambulatory Limitations: No limitations - History of Present Illness Initial comments: 53 yo female presents with cough, congestion, and body aches. She was seen at the [facility] yesterday and diagnosed with an ear infection and bronchitis. She was provided prescriptions but reports today she aches all over. No vomiting or diarrhea. She has fibromyalgia that is much worse. She aches all over her body. No vomiting or diarrhea. The cough remains non productive. She did start her prescriptions. MD Complaint: Generalized weakness -: Week(s) (1) Location: Generalized Severity: Moderate Quality: Aching Consistency: Constant Improves with: None Worsens with: Other (coughing) Associated Symptoms: Rash (On chest from vicks vapo rub) - Rohini Coma Scale Eye Response: (4) Open spontaneously Motor Response: (6) Obeys commands Verbal Response: (5) Oriented Vincent Total: 15 - Related Data Previous Rx's Medication Instructions Recorded Benzonatate [Tessalon] 1 cap PO Q8H PRN #15 cap 01/12/19 Methylprednisolone [Medrol Dose 4 mg PO DAILY #1 tab.ds.pk 01/12/19 Pack] Allergies Allergy/AdvReac Type Severity Reaction Status Date / Time gabapentin [From Neurontin] Allergy PT UNSURE Verified 01/12/19 19:03 OF REACTION itraconazole [From Sporanox] Allergy RASH Verified 01/12/19 19:03 Sulfa (Sulfonamide Allergy HIVES Verified 01/12/19 19:03 Antibiotics) Review of Systems Constitutional: Denies: Chills, Fever, Malaise, Night sweats, Weakness Eyes: Denies: Eye discharge ENT: Reports: Congestion, Ear pain (better today). Denies: Throat pain Respiratory: Reports: Cough. Denies: Dyspnea, Hemoptysis, Stridor, Wheezes Cardiovascular: Denies: Chest pain, Palpitations, Syncope Endocrine: Reports: Fatigue. Denies: Polydipsia, Polyuria Gastrointestinal: Denies: Abdominal pain, Diarrhea, Nausea, Vomiting Genitourinary: Denies: Dysuria, Urgency Musculoskeletal: Denies: Arthralgia, Back pain, Joint swelling, Myalgia Skin: Reports: As per HPI, Rash. Denies: Bruising, Change in color Neurological: Denies: Headache, Numbness, Weakness Psychiatric: Denies: Anxiety Hematological/Lymphatic: Denies: Easy bleeding, Easy bruising Past Medical History - SOCIAL HISTORY Smoking Status: Former smoker Drug Use: None - RESPIRATORY Hx Respiratory Disorders: Yes Hx Asthma: Yes Hx Pneumonia: Yes (06/2015) - CARDIOVASCULAR Hx Cardio Disorders: No - NEURO Hx Neuro Disorders: Yes Hx Headaches: Yes (constant migraine) Comment:: Shingles x2 - GI Hx GI Disorders: Yes Hx Reflux: Yes Hx Hiatal Hernia: Yes - Hx Genitourinary Disorders: Yes Comment:: having post menopausal vaginal bleeding - ENDOCRINE Hx Endocrine Disorders: Yes Hx Thyroid Disease: Yes (hypo) - MUSCULOSKELETAL Hx Musculoskeletal Disorders: Yes Hx Fibromyalgia: Yes - PSYCH Hx Psych Problems: Yes Hx Depression: Yes Comment:: PTSD - HEMATOLOGY/ONCOLOGY Hx Hematology/Oncology Disorders: Yes Hx Anemia: Yes Family Medical History Family Hx Comment (NOT TO BE USED IN PLACE OF ITEMS BELOW): Sister w/MS Hx Cancer: Father Hx Diabetes: Father, Brother/Sister Hx Heart Disease: Grandparents Hx HTN: Father, Mother Physical Exam - General General Appearance: Alert, Oriented x3, Cooperative, No acute distress Limitations: No limitations - Head Head exam: Atraumatic, Normocephalic, Normal inspection - Eye Eye exam: Normal appearance, PERRL. negative: Conjunctival injection, Scleral icterus Pupils: negative: Irregular, Unequal - ENT ENT exam: Normal exam, Mucous membranes moist, TM's normal bilaterally (Normal bilateral TM's). negative: Mucous membranes dry, Normal orophraynx Ear exam: Normal external inspection Nasal Exam: Normal inspection Mouth exam: Normal external inspection Teeth exam: Normal inspection Throat exam: Normal inspection. negative: Tonsillar erythema, Tonsillomegaly, Tonsillar exudate, R peritonsillar mass, L peritonsillar mass - Neck Neck exam: Normal inspection, Full ROM. negative: Lymphadenopathy - Respiratory Respiratory exam: Normal lung sounds bilaterally, Other (Normal work of breathing). negative: Accessory muscle use, Decreased breath sounds, Prolonged expiratory, Respiratory distress, Rhonchi, Stridor, Wheezes - Cardiovascular Cardiovascular Exam: Regular rate, Normal rhythm, Normal heart sounds Peripheral Pulses: 2+: Radial (R), Radial (L) - GI/Abdominal GI/Abdominal exam: Soft. negative: Tenderness - Rectal Rectal exam: Deferred - exam: Deferred - Extremities Extremities exam: Normal inspection. negative: Calf tenderness, Pedal edema, Tenderness - Back Back exam: Denies: CVA tenderness (R), CVA tenderness (L) - Neurological Neurological exam: Alert, Oriented X3 - Psychiatric Psychiatric exam: Normal affect, Normal mood. negative: Agitated, Anxious - Skin Skin exam: Dry, Intact, Normal color, Warm Course - Reevaluation(s) Reevaluation #1: 01/12/19 18:57 The vitals were reviewed No abnormalities. No fever, tachycardia or hypoxia She has normal work of breathing A Flu swab was sent CXR from yesterday reviewed. No acute process Likely viral syndrome with myalgias No acute process 01/12/19 19:15 Influenza Negative DC with supportive treatment recommendations and recommendation for follow up with her PCP as needed Disposition Disposition: Discharge Clinical Impression: Bronchitis, Myalgia Disposition: Home, Self-Care Condition: (1) Good Instructions: Acute Bronchitis (ED), Musculoskeletal Pain (ED) Additional Instructions: Review this ER visit and the tests performed with your family doctor Call your doctor for the next available follow up appointment Return to the ER for a recheck if worse, any new concerns or questions Take the prescriptions provided as directed Prescriptions: Methylprednisolone [Medrol Dose Pack] 4 mg PO DAILY #1 tab.ds.pk Benzonatate [Tessalon] 1 cap PO Q8H PRN #15 cap PRN Reason: Cough Forms: Patient Portal Access Time of Disposition: 18:59 Quality - Quality Measures Quality Measures: N/A - Blood Pressure Screening Does Patient Have Any of the Following: No Blood Pressure Classification: Hypertensive Reading Systolic Measurement: 115 Diastolic Measurement: 96 Screening for High Blood Pressure: < Normal BP, F/U Not Required > [G8783]
[2019-01-12] MEDS ORDERED: KETOROLAC 60 MG/2 ML VIAL IM STA (18:53)
[2019-01-12] MEDS ORDERED: BENZONATATE 100 MG CAPSULE PO ONE (18:55)
[2019-01-12 19:10] LABS: INFLUENZA A NEGATIVE (NEGATIVE); INFLUENZA B NEGATIVE (NEGATIVE)
== END 2019-01-12 20:06 | disposition home or self-care (01) ==
LOC: ER 18:39
DX: J20.9 Acute bronchitis, unspecified (principal); R53.1 Weakness; M79.10 Myalgia, unspecified site; Z87.891 Personal history of nicotine dependence
CPT/HCPCS: 87400; 96372; 99284; J1885